=== PATIENT | female | born 1995 | race Asian ===

== ENCOUNTER 2017-08-12 02:19 | Emergency (ER) | payer SELFPAY ==
[~2017-08-12] VITALS: Ht 165.1 cm; Wt 56.7 kg
[2017-08-12] MEDS ORDERED: ONDANSETRON HCL/PF 4 MG/2 ML VIAL ONE (02:23)
[2017-08-12] MEDS ORDERED: ONDANSETRON HCL/PF - ER 4 MG/2 ML VIAL IV ONE (02:30)
--- NOTE | 2017-08-12 02:32 | NUR ---
PT TO ER BED 15. BIBRA FROM BAR FOR ETOH C/O NAUSEA/VOMITTING. 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 VSS/RESP EVEN UNLABORED/NAD NOTED/SKIN WARM AND DRY/AFEBRILE. AWAITING MD FISHMAN.
[2017-08-12 02:44] LABS: BASOPHILS # (AUTO) 0.1 /CMM (0.0-0.2); BASOPHILS % (AUTO) 1.2 % (0.0-2.0); EOSINOPHILS % (AUTO) 3.1 % (0.0-6.0); HEMATOCRIT 40 % (33-45); LYMPHOCYTES # (AUTO) 4.2 /CMM (0.8-4.8); LYMPHOCYTES % (AUTO) 50.3 % (20.0-44.0); MEAN CORPUSCULAR HEMOGLOBIN 30 PG (26.0-33.0); MEAN CORPUSCULAR HGB CONC 33 g/dl (31.0-36.0); MEAN CORPUSCULAR VOLUME 92 fL (82-100); MONOCYTES # (AUTO) 0.4 /CMM (0.1-1.30); MONOCYTES % (AUTO) 4.9 % (2.0-12.0); NEUTROPHILS # (AUTO) 3.4 /CMM (1.8-8.9); NEUTROPHILS % (AUTO) 40.5 % (43.0-81.0); PLATELET COUNT (AUTO) 253 /CMM (150-450); RDW COEFFICIENT OF VARIATION 13.4 (11.5-15.0); WHITE BLOOD COUNT (AUTO) 8.3 K/uL (4.3-11.0)
--- NOTE | 2017-08-12 02:45 | NUR ---
LAB AT BEDSIDE FOR DRAW.
[2017-08-12 02:53] LABS: CALCIUM, SERUM 8.8 mg/dL (8.5-10.1); CREATININE 0.7 mg/dL (0.6-1.3)
[2017-08-12 02:55] LABS: POTASSIUM 2.7 mmol/L (3.5-5.1)
[2017-08-12] MEDS ORDERED: IV NS 0.9% 1,000 ML BAG IV ONE ×2 (03:00→04:00)
--- NOTE | 2017-08-12 03:36 | NUR ---
PT RESTING QUIETLY, AROUSES TO LOUD VOICE. VSS. RN TO CONTINUE MONITORING PROVIDING SAFETY/COMFORT MEASURES.
[2017-08-12] MEDS ORDERED: POTASSIUM CHLORIDE 10 MEQ/50 ML PREMIXED IVPB FOR PERIPHERAL LINE IV ONE (04:00)
[2017-08-12] MEDS ORDERED: POTASSIUM CL. PREMIX PERIPHER. 50 ML ONE ×2 (04:16→05:14)
--- NOTE | 2017-08-12 04:24 | NUR ---
10MEQ KCL OF A TOTAL 40 MEQ IV INFUSING - BAG 1 OG 4.
--- NOTE | 2017-08-12 05:31 | NUR ---
KCL 10MEQ IV RAC STARTED. BAG 2 OF 4.
[2017-08-12] MEDS ORDERED: POTASSIUM CL. PREMIX PERIPHER. 200 ML ONE (05:52)
--- NOTE | 2017-08-12 06:35 | NUR ---
PT RECEIVED 2 OF 4 BAGS OF KCL. TOTAL 20MEQ OF KCL IV, ORDER WRITTEN FOR 40MEQ. PER MD STOP IV KCL AND GIVE THE REMAINING DOSE BY MOUTH.
[2017-08-12] MEDS ORDERED: POTASSIUM CHLORIDE 20 MEQ TAB.PRT.SR PO ONE ×2 (06:40→07:00)
--- NOTE | 2017-08-12 06:51 | NUR ---
IV removed. Catheter intact and site benign. Pressure and 4x4 applied to site. No bleeding noted. Patient discharged to home in stable condition. Written and verbal after care instructions given. Patient verbalizes understanding of instruction. Patient is awake and alert to self, day, and place. Patient ambulatory with a steady gait.
[2017-08-12 06:52] VITALS: BP 95/51
== END 2017-08-12 06:52 | disposition home or self-care (01) ==
LOC: ER 02:21
DX: F10.129 Alcohol abuse with intoxication, unspecified (principal); R11.10 Vomiting, unspecified; E87.6 Hypokalemia
CPT/HCPCS: 36415; 80048; 83690; 84703; 85025; 96361; 96365; 96366; 96375; 99285; A4606; G0480; J2405 ×2; J3480 ×3; J7030 ×2; Z7610